=== PATIENT | female | born 1980 | race Caucasian/White ===

== ENCOUNTER 2022-11-20 18:21 | Emergency (ER) | payer OTHER, SELFPAY ==
[2022-11-20 18:28] VITALS: BP 155/94; PULSE 76; RESP 18; TEMP 36.3; O2SAT 99
--- NOTE | 2022-11-20 18:44 | ED.NURSE ---
burn pad applied
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
[2022-11-20] MEDS: MORPHINE 10 MG/ML inj IM (19:01)
[2022-11-20 19:25] VITALS: PULSE 75; RESP 18; O2SAT 100
--- NOTE | 2022-11-20 20:01 | ED.NURSE ---
pt hand wrapped, CMS intact before and after wrap
== END 2022-11-20 20:02 | disposition home or self-care (01) ==
PROVIDERS: Emergency Provider Emergency Medicine Emergency Medical Services
DX: T23.251A Burn of second degree of right palm, initial encounter (principal); X19.XXXA Contact with other heat and hot substances, initial encounter
CPT/HCPCS: 96372; 99283; 99284; J2270